=== PATIENT | male | born 1945 | race Caucasian/White ===

== ENCOUNTER 2019-09-01 11:51 | Inpatient (IN) | payer MEDICARE, OTHER ==
[~2019-09-01] VITALS: Ht 175.3 cm; Wt 67.1 kg
--- NOTE | 2019-09-01 12:04 | NUR ---
OSVALDO [place] [employer] [facility] from [facility] for "Fever, more altered/confused than usual", pt to bed 5, placed on monitor, aaox1, vss, nad noted, pending md fortune
[2019-09-01 12:29] LABS: BASOPHILS % (AUTO) 0.3 % (0.0-2.0); EOSINOPHILS % (AUTO) 0.6 % (0.0-6.0); HEMATOCRIT 43 % (39-51); HEMOGLOBIN 14.2 g/dL (13.5-17.5); LYMPHOCYTES # (AUTO) 1.1 /CMM (0.8-4.8); LYMPHOCYTES % (AUTO) 8.4 % (20.0-44.0); MEAN CORPUSCULAR HGB CONC 33 g/dl (31.0-36.0); MEAN CORPUSCULAR VOLUME 95 fL (80-96); MONOCYTES # (AUTO) 1.1 /CMM (0.1-1.30); MONOCYTES % (AUTO) 9.2 % (2.0-12.0); NEUTROPHILS # (AUTO) 10.2 /CMM (1.8-8.9); NEUTROPHILS % (AUTO) 81.5 % (43.0-81.0); PLATELET COUNT (AUTO) 461 /CMM (150-450); RED BLOOD CELL COUNT(AUTO) 4.55 MIL/uL (4.5-6.0); WHITE BLOOD COUNT (AUTO) 12.5 K/uL (4.3-11.0)
[2019-09-01] MEDS ORDERED: ACETAMINOPHEN ES 500 MG TABLET PO ONE (12:30)
[2019-09-01 12:50] LABS: ALANINE AMINOTRANSFERASE 59 U/L (12-78); ALBUMIN 2.1 g/dL (3.4-5.0); ALKALINE PHOSPHATASE 80 U/L (46-116); ASPARTATE AMINOTRANSFERASE 57 U/L (15-37); BILIRUBIN,DIRECT 0.2 mg/dL (0.0-0.2); BILIRUBIN,TOTAL 0.6 mg/dL (0.2-1.0); CALCIUM, SERUM 9.3 mg/dL (8.5-10.1); CARBON DIOXIDE 25 mmol/L (21-32); CHLORIDE 103 mmol/L (98-107); GLUCOSE 99 mg/dL (74-106); POTASSIUM 3.6 mmol/L (3.5-5.1); SODIUM SERUM 142 mmol/L (136-145); TOTAL PROTEIN, SERUM 7.1 g/dL (6.4-8.2); UREA NITROGEN, BLOOD 23 mg/dL (7-18)
[2019-09-01] MEDS ORDERED: ACETAMINOPHEN ES 500 MG TABLET ONE (12:55)
[2019-09-01] MEDS ORDERED: ACETAMINOPHEN 650 MG/SUPP.RECT RC ONE ×2 (12:57→13:30)
[2019-09-01 13:06] LABS: BAND % (MANUAL) 3 % (0.0-5.0); LYMPHOCYTES % (MANUAL) 14 % (16-48); MONOCYTES % (MANUAL) 10 % (0-11.0); NEUTROPHILS % (MANUAL) 73 (42-76)
[2019-09-01 13:52] LABS: APPEARANCE,URINE Clear (CLEAR); BILIRUBIN,URINE Negative (NEGATIVE); BLOOD, URINE Trace-intact Ery/uL (NEGATIVE); COLOR,URINE Yellow (YELLOW); KETONES,URINE Negative (NEGATIVE); LEUKOCYTE ESTERASE ,URINE Negative (NEGATIVE); NITRITE, URINE Negative (NEGATIVE); PH,URINE 5.5 (5.0-8.0); PROTEIN,URINE Trace mg/dl (NEGATIVE); UGLUCOSE Negative (NEGATIVE)
[2019-09-01 13:53] LABS: BACTERIA,URINE Rare /HPF (None Seen); SQUAMOUS EPITHELIAL CELL,UR Few /HPF (None Seen); WBC,URINE NONE SEEN /HPF (0-3)
[2019-09-01] MEDS ORDERED: CEFEPIME 1 GM in IV D5W 50 ML IV ONE (14:00)
--- NOTE | 2019-09-01 14:59 | NUR ---
CALLED [facility] PAGED ANTWAN
[2019-09-01] MEDS ORDERED: TEMA30CA5 PO (15:04)
[2019-09-01] MEDS ORDERED: OLAN15TA3 PO (15:04)
[2019-09-01] MEDS ORDERED: CLON2TAB PO (15:04)
[2019-09-01] MEDS ORDERED: TAMS-12 PO (15:04)
[2019-09-01] MEDS ORDERED: LORA-258 PO (15:04)
[2019-09-01] MEDS ORDERED: RIVA1PAT3 TD (15:04)
[2019-09-01] MEDS ORDERED: PANT40TA2 PO (15:04)
[2019-09-01] MEDS ORDERED: MEGE400O6 PO (15:04)
--- NOTE | 2019-09-01 15:46 | NUR ---
REPORT GIVEN TO MATHIEU MOSS FOR ROXIE; PT TRANSPORTED TO 1ST FLOOR
--- NOTE | 2019-09-01 15:50 | NUR ---
TELE/RN NOTES RECEIVED PATIENT FROM ER ACCOMPANIED BY ER NURSE AND EMT. PATIENT WAS TRANSFERRED IN BED. NO PAIN OR ACUTE DISTRESS AT THIS TIME. RESPIRATION EVEN AND UNLABORED. SKIN IS DRY WARM TO TOUCH. NOTED WITH IV ACCESS ON LFA #18G. INTACT AND PATENT. FLUSHING WELL. NO S/S OF INFECTION OR INFILTRATION. INITIAL SKIN ASSESSMENT DONE. PHOTOS WAS TAKEN AND WAS PLACED IN THE CHART. ALL NEEDS ANTICIPATED. CALL LIGHT WITHIN REACHED. BED LOCKED AND IN LOWEST POSITION. SAFETY MAINTAINED. WILL CONTINUE TO MONITOR CLOSELY.
[2019-09-01] MEDS ORDERED: MAG HYDROX/AL HYDROX/SIMETH 30 ML UDC PO PRN (16:00)
[2019-09-01] MEDS ORDERED: ACETAMINOPHEN 325 MG TABLET PO PRN (16:00)
[2019-09-01] MEDS ORDERED: ZOLPIDEM TARTRATE 5 MG TABLET PO PRN (16:00)
[2019-09-01] MEDS ORDERED: Z GUARD REMEDY 2 OZ OINT TP PRN (16:00)
[2019-09-01] MEDS ORDERED: ONDANSETRON HCL/PF 4 MG/2 ML VIAL IVP PRN (16:00)
[2019-09-01] MEDS ORDERED: MAGNESIUM HYDROXIDE 30 ML UDC PO PRN (16:00)
[2019-09-01] MEDS ORDERED: HYDROCODONE/APAP 5/325MG 1 EACH TABLET PO PRN (16:00)
[2019-09-01] MEDS ORDERED: FEE PK DOSING 1 MIN EA MC ONE (16:07)
--- NOTE | 2019-09-01 16:20 | NUR ---
TELE/RN NOTES COVID SWAB DONE AND WAS GIVEN TO LAB FOR PROCESSING. PATIENT CONTINUES TO REMAIN IN STABLE CONDITION. WILL CONTINUE TO MONITOR CLOSELY.
[2019-09-01 16:30] VITALS: BP 126/68
[2019-09-01 17:29] LABS: C-REACTIVE PROTEIN 13.6 mg/dL (0.0-0.9)
[2019-09-01] MEDS: VANCOMYCIN 1 GM in IV D5W 250 ML IV SCH (17:59)
[2019-09-01] MEDS: IV NS 0.9% 1,000 ML IV SCH (18:00)
[2019-09-01] MEDS: MEGESTROL ACETATE SUSP 400 MG/10 ML UDC PO SCH (18:00)
--- NOTE | 2019-09-01 19:01 | NUR ---
TELE/RN NOTES INCIDENT REPORT DONE WITH UNIQUE ID: [id number].
--- NOTE | 2019-09-01 19:05 | NUR ---
BEHAVIORIST OPENING NOTES RECEIVED PT AWAKE ON BED ON O2 2L VIA NC, A/O X1 WITH IV ON LFA #18 HOOKED TO NS 1L @75ML/HR INFUSING WELL, NO SIGNS OF INFILTRATION, ON TELE MONITOR ST 100'S, SAFETY MEASURE MAINTAINED SIDE RAILS UP X3 BED ON LOWEST POSITION AND LOCKED CALL LIGHT WITHIN REACH DROPLET ISOLATION MAINTAINED PENDING [facility], WILL CONT. TO MONITOR
--- NOTE | 2019-09-01 19:10 | NUR ---
TELE/RN CLOSING NOTES PATIENT CONTINUES TO REMAIN IN STABLE CONDITION THROUGHOUT THE SHIFT. PROVIDED COMFORT AND SAFETY. PATIENT ABLE TO TOLERATE MEDS WELL. NO PAIN OR ACUTE DISTRESS AT THIS TIME. RESPIRATION EVEN AND UNLABORED. SKIN IS DRY WARM TO TOUCH. DROPLET PRECAUTION MAINTAINED. ALL NEEDS ANTICIPATED. CALL LIGHT WITHIN REACHED. BED LOCKED AND IN LOWEST POSITION. SAFETY MAINTAINED. ENDORSED TO PM NURSE FOR ROXIE.
[2019-09-01 20:00] VITALS: BP 130/87
[2019-09-01] MEDS ORDERED: CEFEPIME 2 GM in IV NS 0.9% 50 ML IV SCH (21:00)
[2019-09-01] MEDS: CEFEPIME 2 GM in IV D5W 100 ML IV SCH (21:12)
[2019-09-01] MEDS: TAMSULOSIN 0.4 MG CAP.SR.24H PO SCH (21:13)
[2019-09-01] MEDS: OLANZAPINE 10 MG TABLET PO SCH (21:13)
[2019-09-01] MEDS ORDERED: [UNRECOGNIZED DRUG - REMARK] PO SCH (23:00)
[2019-09-01] MEDS ORDERED: HYDROXYCHLOROQUINE 200 MG TABLET ONE (23:08)
[2019-09-01] MEDS ORDERED: AZITHROMYCIN 500 MG VIAL ONE (23:32)
[2019-09-01] MEDS: AZITHROMYCIN 500 MG in IV D5W 250 ML IV SCH (23:42)
--- NOTE | 2019-09-01 23:45 | NUR ---
CASINO SURVEILLANCE OFFICER NOTES PHARMACY CALLED REGARDING THE HYDROXYCHLOROQUINE ORDER AND RECOMMENDATION, DR VEGA MADE AWARE AND AGREED TO HYDROXYCHLOROQUINE 400MG BID X 1 DAY AND HYDROXYCHLOROQUINE 200MG BID X 4 DAYS NOTED AND CARRIED OUT
[2019-09-02] VITALS (7 sets, daily range): BP systolic 101–143; BP diastolic 60–113
[2019-09-02] MEDS ORDERED: [UNRECOGNIZED DRUG - REMARK] PO SCH
[2019-09-02] MEDS: CEFEPIME 2 GM in IV D5W 100 ML IV SCH ×3 (04:25→21:27)
[2019-09-02] MEDS: VANCOMYCIN 1 GM in IV D5W 250 ML IV SCH ×2 (05:04→16:27)
[2019-09-02] MEDS ORDERED: HYDROXYCHLOROQUINE 200 MG TABLET PO SCH (06:11)
[2019-09-02 06:24] LABS: BASOPHILS % (AUTO) 0.3 % (0.0-2.0); EOSINOPHILS % (AUTO) 0.6 % (0.0-6.0); HEMATOCRIT 40 % (39-51); HEMOGLOBIN 13.3 g/dL (13.5-17.5); LYMPHOCYTES # (AUTO) 0.9 /CMM (0.8-4.8); LYMPHOCYTES % (AUTO) 6.3 % (20.0-44.0); MEAN CORPUSCULAR HGB CONC 33 g/dl (31.0-36.0); MEAN CORPUSCULAR VOLUME 95 fL (80-96); MONOCYTES # (AUTO) 1.2 /CMM (0.1-1.30); MONOCYTES % (AUTO) 8.7 % (2.0-12.0); NEUTROPHILS # (AUTO) 11.7 /CMM (1.8-8.9); NEUTROPHILS % (AUTO) 84.1 % (43.0-81.0); PLATELET COUNT (AUTO) 419 /CMM (150-450); RED BLOOD CELL COUNT(AUTO) 4.24 MIL/uL (4.5-6.0); WHITE BLOOD COUNT (AUTO) 13.9 K/uL (4.3-11.0)
[2019-09-02 06:39] LABS: CHOLESTEROL 114 mg/dL (<200); CREATINE KINASE, TOTAL 621 U/L (39-308); FERRITIN 2024 ng/mL (8-388); HDL CHOLESTEROL 15 mg/dL (40-60); LDL 83 mg/dL (0-99); TRIGLYCERIDES 113 mg/dL (30-150)
[2019-09-02] MEDS: IV NS 0.9% 1,000 ML IV SCH ×2 (06:48→22:36)
--- NOTE | 2019-09-02 07:23 | NUR ---
MEDICAL VIDEOGRAPHER CLOSING NOTES PT ON GOOD CONDITION NO SIGN AND SYMPTOMS OF DISTRESS, NO PAIN NOTED, NO SIGNIFICANT CHANGES ON CONDITION NOTED, ALL NEEDS ATTENDED STILL ON TELE WITH READING ST 100'S, SAFETY MEASURE MAINTAINED BED ON LOWEST POSITION AND LOCKED SIDE RAILS UP X3 CALL LIGHT WITHIN REACHED DROPLET ISOLATION MAINTAINED LABS PENDING WILL ENDORSE TO MUSIC VIDEO PRODUCER NURSE
--- NOTE | 2019-09-02 07:30 | NUR ---
RN opening note: Received patient in bed. Awake and confused. On cont. 02 via NC @2lpm being tolerated well. NO SOB, no respiratory distress noted at the moment. Tele monitoring showing sinus tachycardia in the 110-120s. No pain noted on patient. On isolation precautions to R/O Covid. Precautions strictly observed. Mariano catheter draining jer urine. Iv site clean, dry. patent and in place. call light in reach. side rails upx3. bed locked, low and at semi-borden's position. safety ensured and observed. will continue to monitor.
[2019-09-02 08:03] LABS: B-TYPE NATRIURETIC PEPTIDE 110 PG/ML (0-125); CALCIUM, SERUM 8.6 mg/dL (8.5-10.1); CARBON DIOXIDE 21 mmol/L (21-32); CHLORIDE 103 mmol/L (98-107); CREATININE 0.9 mg/dL (0.6-1.3); GLUCOSE 153 mg/dL (74-106); MAGNESIUM 2.1 mg/dL (1.8-2.4); PHOSPHORUS 3.6 mg/dL (2.5-4.9); POTASSIUM 3.9 mmol/L (3.5-5.1); SODIUM SERUM 138 mmol/L (136-145); UREA NITROGEN, BLOOD 22 mg/dL (7-18)
[2019-09-02 08:24] LABS: BAND % (MANUAL) 3 % (0.0-5.0); EOSINOPHILS % (MANUAL) 1 % (0-4); LYMPHOCYTES % (MANUAL) 6 % (16-48); MONOCYTES % (MANUAL) 8 % (0-11.0); MYELOCYTES % 1 % (0-0); NEUTROPHILS % (MANUAL) 81 (42-76)
[2019-09-02] MEDS: MEGESTROL ACETATE SUSP 400 MG/10 ML UDC PO SCH ×2 (08:48→16:27)
[2019-09-02] MEDS: PANTOPRAZOLE 40 MG TABLET.DR PO SCH (08:48)
[2019-09-02] MEDS: RIVASTIGMINE TARTRATE 4.6 MG PATCH.TD24 TD SCH (08:51)
[2019-09-02] MEDS: HYDROXYCHLOROQUINE 200 MG TABLET PO SCH (16:27)
--- NOTE | 2019-09-02 18:27 | NUR ---
RN Closing note: Patient in bed. awake and confused and at times oriented x1. . On cont. 02 via NC @2lpm being tolerated well. NO SOB, no respiratory distress noted at the moment. Tele monitoring showing sinus tachycardia in the 100-110s. No pain noted on patient. On isolation precautions to R/O Covid. Precautions strictly observed. Still awaiting results and Dr. Holland is aware. Mariano catheter draining yellow and jer urine. IV site clean, dry. patent and in place. Call light in reach. side rails upx3. bed locked, low and at semi-borden's position. safety ensured and observed. will endorse to oncoming shift for ROXIE.
--- NOTE | 2019-09-02 19:20 | NUR ---
RN OPENING NOTE PATIENT IN BED SLEEPING IN SEMI HUNT'S POSITION BUT EASILY AROUSABLE. ON 2L OF O2 VIA NC AND TOLERATING WELL. NO RESPIRATORY DISTRESS NOTED. RESPIRATIONS EVEN AND UNLABORED. NO INDICATIONS OF DISTRESS OR DISCOMFORT. TELE MONITORING SHOWS SINUS TACHYCARDIA. ON ISOLATION PRECAUTIONS FOR R/O COVID. RESULTS PENDING. KELLEY CATHETER PATENT AND IN PLACE DRAINING CLEAR YELLOW URINE VIA GRAVITY. CALL LIGHT WITHIN REACH, SAFETY MEASURES IN PLACE, WILL MONITOR
[2019-09-02] MEDS: OLANZAPINE 10 MG TABLET PO SCH (21:33)
[2019-09-02] MEDS: TAMSULOSIN 0.4 MG CAP.SR.24H PO SCH (21:33)
[2019-09-02] MEDS: AZITHROMYCIN 500 MG in IV D5W 250 ML IV SCH (22:35)
[2019-09-03] VITALS: BP 97/62
[2019-09-03 04:00] VITALS: BP 100/64
[2019-09-03 04:13] LABS: BASOPHILS % (AUTO) 0.3 % (0.0-2.0); EOSINOPHILS % (AUTO) 0.9 % (0.0-6.0); HEMATOCRIT 39 % (39-51); HEMOGLOBIN 13.1 g/dL (13.5-17.5); LYMPHOCYTES % (AUTO) 7.3 % (20.0-44.0); MEAN CORPUSCULAR HGB CONC 33 g/dl (31.0-36.0); MEAN CORPUSCULAR VOLUME 95 fL (80-96); MONOCYTES # (AUTO) 1.6 /CMM (0.1-1.30); MONOCYTES % (AUTO) 11.6 % (2.0-12.0); NEUTROPHILS # (AUTO) 10.9 /CMM (1.8-8.9); NEUTROPHILS % (AUTO) 79.9 % (43.0-81.0); PLATELET COUNT (AUTO) 369 /CMM (150-450); RED BLOOD CELL COUNT(AUTO) 4.14 MIL/uL (4.5-6.0); WHITE BLOOD COUNT (AUTO) 13.6 K/uL (4.3-11.0)
[2019-09-03 04:24] LABS: CALCIUM, SERUM 8.3 mg/dL (8.5-10.1); CARBON DIOXIDE 25 mmol/L (21-32); CHLORIDE 104 mmol/L (98-107); CREATININE 0.8 mg/dL (0.6-1.3); GLUCOSE 92 mg/dL (74-106); POTASSIUM 3.8 mmol/L (3.5-5.1); SODIUM SERUM 140 mmol/L (136-145); UREA NITROGEN, BLOOD 15 mg/dL (7-18)
[2019-09-03] MEDS: VANCOMYCIN 1 GM in IV D5W 250 ML IV SCH ×2 (04:34→17:21)
[2019-09-03] MEDS: CEFEPIME 2 GM in IV D5W 100 ML IV SCH ×3 (04:34→21:07)
--- NOTE | 2019-09-03 06:36 | NUR ---
RN CLOSING NOTE PATIENT SLEEPING IN BED IN SEMI HUNT'S POSITION. EASILY AROUSABLE WITH VERBAL AND TACTILE STIMULI. RESPIRATIONS EVEN AND UNLABORED. ON 3L OF O2 VIA NC AND TOLERATING WELL. NO SIGNS OF RESPIRATORY OR CARDIAC DISTRESS. NO INDICATIONS OF PAIN OR DISCOMFORT. TELE MONITOR SHOWS SINUS TACHYCARDIA (96). ON ISOLATION PRECAUTIONS FOR R/O COVID. RESULTS STILL PENDING. KELLEY CATHETER PATENT AND IN PLACE DRAINING CLEAR YELLOW URINE VIA GRAVITY, LEFT FOREARM IV G 18 PATENT AND RUNNING IVF NS @75ML/HR ORDERED. ALSO WITH RIGHT ANTECUBITAL G 22 PATENT AND INTACT. BOTH IV SITES WITHOUT SIGNS OF INFILTRATION AND INFECTION. CALL LIGHT WITHIN REACH, BED LOCKED AND IN LOW POSITION, SAFETY MEASURES IN PLACE, WILL ENDORSE TO MORNING RN FOR CONTINUATION OF CARE.
--- NOTE | 2019-09-03 07:30 | NUR ---
TELEPHONE SERVICE REPRESENTATIVE OPENING NOTE Received patient asleep in bed appears calm and relaxed. On NC 3L tolerating well. O2 sat of 99%. Patient is AO x1. Unable to speak. No signs of distress. Patient is on Mariano Catheter draining clear yellow urine. No signs of infection. No signs of pain or discomfort. Patient is contracted. Pillows in place repositioned done. Patient has LFA and RAC Peripheral IV line. 0.9% NaCl running at 75cc/hr on LFA. Patient is pending for Covid-19 test results. Will continue to monitor.
[2019-09-03] MEDS: PANTOPRAZOLE 40 MG TABLET.DR PO SCH (07:34)
[2019-09-03 08:00] VITALS: BP 97/50
--- NOTE | 2019-09-03 08:17 | NUR ---
TIMBER TRIMMER NOTE Called daughter Susan Stinson regarding patient's POLST. Left a message to give us a call back.
[2019-09-03] MEDS: IV NS 0.9% 1,000 ML IV SCH (08:24)
[2019-09-03] MEDS: HYDROXYCHLOROQUINE 200 MG TABLET PO SCH ×2 (08:24→17:21)
[2019-09-03] MEDS: MEGESTROL ACETATE SUSP 400 MG/10 ML UDC PO SCH ×2 (08:24→17:21)
[2019-09-03] MEDS: RIVASTIGMINE TARTRATE 4.6 MG PATCH.TD24 TD SCH (08:24)
--- NOTE | 2019-09-03 09:01 | NUR ---
WOUND CARE CONSULT: PT PRESENTS WITH MULTIPLE WOUNDS PRESENT ON ADMISSION INCLUDING LEFT BUTTOCK STAGE 3 ULCER AND BILATERAL FOOT INTACT DEEP TISSUE INJURIES WITH RAISED AREAS. PT NOTED TO HAVE CONTACTED LOWER EXTREMITIES. RECOMMENDATIONS MADE FOR SKIN PROTECTION. DISCUSSED WITH NURSING STAFF. RECOMMEND DPM AND SURGICAL CONSULTS. DR HERRERA AND DR RAY NOTIFIED OF CONSULT REQUESTS. WILL SEE PRN. BLACKMON IN AGREEMENT WITH PLAN OF CARE. Addendum: 09/03/19 at 0903 by DANISHA KU Amended: Links added. Addendum: 09/03/19 at 0959 by DANISHA HYLTONU CURRENT JONES SCORE IS 11. FIRST STEP LOW AIRLOSS MATTRESS ORDERED.
--- NOTE | 2019-09-03 10:00 | NUR ---
CARBONATION EQUIPMENT TENDER NOTE Daughter Susan called back regarding patient. Advance Directive that she signed on 04/2019 was discussed with her. Asked her if she still wants to proceed with the same DNR. She said yes. Asked her if we find the patient not breathing does she want us to put a tube on his mouth to help him breath. She said no. DNR/DNI status update was witnessed by Charge Nurse Katheryn Holland to provide information. Awaiting call back.
--- NOTE | 2019-09-03 10:38 | NUR ---
DIETARY SERVICES DIRECTOR NOTE Received call back from Dr. Holland to keep the same POLST DNR/DNI as daughter have confirmed. Entered the order in the system.
[2019-09-03] MEDS: THERAHONEY GEL 1.5 OZ TUBE TP SCH (11:42)
[2019-09-03 12:00] VITALS: BP_SYST 95; BP_DIAS 50; BP_DIAS 53
--- NOTE | 2019-09-03 14:25 | NUR ---
INDUSTRIAL TECHNICIAN NOTE Called Susan Stinson, patient's daughter, to obtain consent for the wound debridement on L. Buttock. Daughter gave consent. Placed consent in chart.
[2019-09-03 16:00] VITALS: BP 100/64
--- NOTE | 2019-09-03 18:38 | NUR ---
ICU REGISTERED NURSE CLOSING NOTE Patient is in bed with eyes closed. HOB elevated. On NC 3L tolerating well. No signs of distress. O2 sat is 95%. No co pain or discomfort. On cam catheter draining clear yellow urine. Patient tolerated pureed diet nectar thick liquids and had 25%. No coughing noted. Patient is afebrile. Nasal swab done to patient and lab picked up specimen. Covid test is still pending. Will follow up and endorse to assistant shift supervisor nurse for caty.
--- NOTE | 2019-09-03 19:33 | NUR ---
VEGETABLE PICKER CLOSING NOTE ENDORSED TO LOSS PREVENTION SUPERVISOR NURSE FOR ROXIE.
--- NOTE | 2019-09-03 19:35 | NUR ---
RN OPEN NOTES RECEIVED PATIENT RESTING IN BED, A/OX1 RESPONDS "YEA" WHEN SAYING HIS NAME. NO SIGNS OF DISTRESS OR DISCOMFORT. BREATHING EVEN AND UNLABORED. ON 3LPM 02VIA NC. ON TELE MONITOR WITH ST 110 NOTED. IV ACCESS IN RAC, AND LFA WITH NS INFUSING, PATENT AND INTACT, NO SIGNS OF REDNESS OR INFILTRATION. HAS F/C INTACT DRAINING PRACHI RED FLUID. BED IN LOW LOCKED POSITION WITH SIDE RAILS X2. CALL LIGHT WITHIN REACH. WILL CONTINUE TO MONITOR.
[2019-09-03 20:00] VITALS: BP 105/70
[2019-09-03] MEDS: OLANZAPINE 10 MG TABLET PO SCH (21:07)
[2019-09-03] MEDS: TAMSULOSIN 0.4 MG CAP.SR.24H PO SCH (21:07)
[2019-09-03] MEDS: AZITHROMYCIN 500 MG in IV D5W 250 ML IV SCH (23:16)
[2019-09-04] VITALS: BP 114/72
[2019-09-04 04:00] VITALS: BP 109/53
[2019-09-04] MEDS: VANCOMYCIN 1 GM in IV D5W 250 ML IV SCH ×2 (05:20→16:07)
[2019-09-04] MEDS: CEFEPIME 2 GM in IV D5W 100 ML IV SCH ×3 (05:20→21:08)
[2019-09-04 06:36] LABS: BASOPHILS % (AUTO) 0.3 % (0.0-2.0); EOSINOPHILS % (AUTO) 0.6 % (0.0-6.0); HEMATOCRIT 38 % (39-51); HEMOGLOBIN 12.5 g/dL (13.5-17.5); LYMPHOCYTES # (AUTO) 1.2 /CMM (0.8-4.8); LYMPHOCYTES % (AUTO) 10.1 % (20.0-44.0); MEAN CORPUSCULAR HGB CONC 33 g/dl (31.0-36.0); MEAN CORPUSCULAR VOLUME 95 fL (80-96); MONOCYTES # (AUTO) 1.3 /CMM (0.1-1.30); MONOCYTES % (AUTO) 11.1 % (2.0-12.0); NEUTROPHILS # (AUTO) 9.3 /CMM (1.8-8.9); NEUTROPHILS % (AUTO) 77.9 % (43.0-81.0); PLATELET COUNT (AUTO) 376 /CMM (150-450); WHITE BLOOD COUNT (AUTO) 11.9 K/uL (4.3-11.0)
[2019-09-04 06:40] LABS: CALCIUM, SERUM 8.3 mg/dL (8.5-10.1); CREATININE 0.7 mg/dL (0.6-1.3); POTASSIUM 3.7 mmol/L (3.5-5.1)
--- NOTE | 2019-09-04 06:58 | NUR ---
RN CLOSING NOTES PATIENT RESTING IN BED, EASILY AROUSABLE. A/OX1. NO SIGNS OF DISTRESS OR DISCOMFORT. BREATHING EVEN AND UNLABORED. ON 3LPM 02VIA NC. ON TELE MONITOR WITH ST 105 NOTED. IV ACCESS IN RAC, AND LFA WITH NS INFUSING, PATENT AND INTACT, NO SIGNS OF REDNESS OR INFILTRATION. HAS F/C INTACT DRAINING PRACHI RED FLUID. ALL NEEDS MET. NO SIGNIFICANT CHANGES THROUGH THE NIGHT. PATIENT REPOSITIONED Q2H AND PRN. BED IN LOW LOCKED POSITION WITH SIDE RAILS X2. CALL LIGHT WITHIN REACH. WILL ENDORSE TO AM SHIFT FOR ROXIE.
--- NOTE | 2019-09-04 07:39 | NUR ---
RN OPENING NOTES RECEIVED PATIENT RESTING IN BED COMFORTABLY, DOES NOT SHOW ANY S.SX OF DISTRESS AT THIS TIME. HE IS AOX1, NON-VERBAL, AND ON BED REST. TELE MONITOR SHOWING SR ST WITH HR IN THE 110'S. SKIN IS NOT INTACT, WILL ADDRESS PER WOUND CARE PLAN, HE IS ON 3L OF OXYGEN VIA NC, TOLERATING WELL. RAC 22 G SL AND LFA 18 G ARE PATENT AND INTACT, INFUSING NS AT 75 ML.HR. SAFETY MEASURES HAVE BEEN IMPLEMENTED, CALL LIGHT IS WITHIN REACH, BED IS IN LOWEST AND LOCKED POSITION, SIDE RAILS UP X2, WILL CONTINUE TO MONITOR FOR ANY CHANGES.
[2019-09-04 08:00] VITALS: BP_SYST 89; BP_SYST 92; BP_DIAS 54
[2019-09-04] MEDS: HYDROXYCHLOROQUINE 200 MG TABLET PO SCH ×2 (08:09→16:06)
[2019-09-04] MEDS: MEGESTROL ACETATE SUSP 400 MG/10 ML UDC PO SCH ×2 (08:09→16:06)
[2019-09-04] MEDS: PANTOPRAZOLE 40 MG TABLET.DR PO SCH (08:10)
[2019-09-04] MEDS: RIVASTIGMINE TARTRATE 4.6 MG PATCH.TD24 TD SCH (08:11)
[2019-09-04] MEDS: THERAHONEY GEL 1.5 OZ TUBE TP SCH (08:19)
[2019-09-04 12:00] VITALS: BP 98/63
[2019-09-04 16:00] VITALS: BP 101/70
[2019-09-04] MEDS: IV NS 0.9% 1,000 ML IV PRN (16:06)
--- NOTE | 2019-09-04 18:53 | NUR ---
RN CLOSING NOTES PATIENT IS RESTING IN BED COMFORTABLY AT THIS TIME, NO S.SX OF DISTRESS PRESENT. PT IS ON 3L OF OXYGEN VIA NC, NO S/SX OF SOB. DROPLET AND CONTACT ISO HAVE BEEN IMPLEMENTED AND ENFORCED FOR RULE OUT CO-VID. PT NEEDS HAVE BEEN MET, VITAL SIGNS ARE STABLE, NO ACUTE CHANGES OCCURRED THROUGHOUT THE SHIFT. SAFETY MEASURES HAVE BEEN IMPLEMENTED, CALL LIGHT IS WITHIN REACH, BED IS IN LOWEST AND LOCKED POSITION, SIDE RAILS UP X2, WILL ENDORSE TO NIGHTSHIFT RN FOR ROXIE.
--- NOTE | 2019-09-04 19:10 | NUR ---
RN OPENING NOTES RECEIVED PATIENT SLEEPING IN BED, BUT EASY TO AROUSE VIA TOUCH. OPENS EYES, HOWEVER DOES NOT ANSWER TO QUESTIONS. ON TELE MONITOR SR-ST WITH HR 90'S-100'S. ON OXYGEN 3L VIA NC, TOLERATING WELL, NO SOB OR RESPIRATORY DISTRESS NOTED. IV SITE RIGHT AC 22G FLUSHING AND INTACT, IVF RUNNING AT 75ML/HR, TOLERATING WELL, NO INFILTRATION NOTED. KELLEY CATH INTACT AND DRAINING WELL. SAFETY MEASURES AND ISOLATION PRECAUTIONS IN PLACE; CALL LIGHT WITHIN REACH, BED LOCKED AND IN LOW POSITION, SIDE RAILS UP X2, HOB ELEVATED, BED ALARM ON. WILL CONTINUE TO PATIENT MONITOR CLOSELY.
--- NOTE | 2019-09-04 19:10 | NUR ---
PT HAS BEEN ENDORSED FOR ROXIE
[2019-09-04 20:00] VITALS: BP 107/50
[2019-09-04] MEDS: TAMSULOSIN 0.4 MG CAP.SR.24H PO SCH (21:08)
[2019-09-04] MEDS: OLANZAPINE 10 MG TABLET PO SCH (21:08)
[2019-09-04] MEDS: AZITHROMYCIN 500 MG in IV D5W 250 ML IV SCH (23:00)
[2019-09-05] VITALS: BP 91/60
--- NOTE | 2019-09-05 | NUR ---
RN NOTES PATIENT ROUNDING DONE, NO ACUTE DISTRESS NOTED. WILL CONT TO MONITOR CLOSELY.
[2019-09-05 04:00] VITALS: BP 110/63
[2019-09-05] MEDS: CEFEPIME 2 GM in IV D5W 100 ML IV SCH ×3 (04:15→21:33)
[2019-09-05] MEDS: IV NS 0.9% 1,000 ML IV PRN ×2 (05:24→21:34)
[2019-09-05] MEDS: VANCOMYCIN 1 GM in IV D5W 250 ML IV SCH ×2 (05:24→16:09)
[2019-09-05 06:09] LABS: BASOPHILS % (AUTO) 0.2 % (0.0-2.0); EOSINOPHILS % (AUTO) 1.8 % (0.0-6.0); HEMATOCRIT 34 % (39-51); HEMOGLOBIN 11.3 g/dL (13.5-17.5); LYMPHOCYTES % (AUTO) 7.9 % (20.0-44.0); MEAN CORPUSCULAR HGB CONC 33 g/dl (31.0-36.0); MEAN CORPUSCULAR VOLUME 94 fL (80-96); MONOCYTES # (AUTO) 1.1 /CMM (0.1-1.30); MONOCYTES % (AUTO) 8.7 % (2.0-12.0); NEUTROPHILS # (AUTO) 10.5 /CMM (1.8-8.9); NEUTROPHILS % (AUTO) 81.4 % (43.0-81.0); PLATELET COUNT (AUTO) 371 /CMM (150-450); RED BLOOD CELL COUNT(AUTO) 3.65 MIL/uL (4.5-6.0); WHITE BLOOD COUNT (AUTO) 12.8 K/uL (4.3-11.0)
[2019-09-05 06:14] LABS: ALBUMIN 1.6 g/dL (3.4-5.0); BILIRUBIN,TOTAL 0.5 mg/dL (0.2-1.0); CALCIUM, SERUM 8.1 mg/dL (8.5-10.1); CREATININE 0.8 mg/dL (0.6-1.3); MAGNESIUM 1.9 mg/dL (1.8-2.4); PHOSPHORUS 2.8 mg/dL (2.5-4.9); POTASSIUM 3.2 mmol/L (3.5-5.1); TOTAL PROTEIN, SERUM 5.5 g/dL (6.4-8.2)
--- NOTE | 2019-09-05 06:40 | NUR ---
RN CLOSING NOTES PATIENT IN BED, NO ACUTE CHANGES THROUGHOUT SHIFT. ON TELE MONITOR SR-ST WITH HR 90'S-100'S. ON OXYGEN 3L VIA NC, TOLERATING WELL, NO SOB OR RESPIRATORY DISTRESS NOTED. IV SITES RIGHT FA 22G AND LEFT WRIST 22G BOTH FLUSHING AND INTACT, IVF RUNNING AT 75ML/HR, TOLERATING WELL, NO INFILTRATION NOTED. KELLEY CATH INTACT AND DRAINING WELL. ALL MD ORDERS ATTENDED, ALL NEEDS ANTICIPATED AND MET. SAFETY MEASURES AND ISOLATION PRECAUTIONS MAINTAINED. COVID19 SWAB STILL PENDING. WILL CONTINUE TO PATIENT MONITOR CLOSELY. WILL ENDORSE TO AM RN FOR ROXIE.
--- NOTE | 2019-09-05 07:30 | NUR ---
RN OPENING NOTES RECEIVED PATIENT RESTING IN BED COMFORTABLY, SHOWS NO S.SX OF DISTRESS OR SOB. HE IS AOX1, NON-VERBAL, AND BEDBOUND. HE IS ON 3L OF OXYGEN VIA NC, TOLERATING WELL, NO SOB. TELE MONITOR SHOWING SR. KELLEY CATH IS PATENT AND INTACT, DRAINING PRACHI COLORED URINE BY GRAVITY. SKIN IS NOT INTACT, MULTIPLE ISSUES PRESENT, WILL ADDRESS PER WOUND PLAN. L WRIST 22G, RFA 22G IS PATENT AND INTACT, INFUSING NS AT 75 ML.HR. SAFETY MEASURES HAVE BEEN IMPLEMENTED, CALL LIGHT IS WITHIN REACH, BED IS IN LOWEST AND LOCKED POSITION, SIDE RAILS UP X2, WILL CONTINUE TO MONITOR FOR ANY CHANGES.
--- NOTE | 2019-09-05 07:36 | NUR ---
RN OPENING NOTES RECEIVED PATIENT RESTING IN BED COMFORTABLY AND AWAKE. SHE IS AOX2, VERBAL, AND ON BED REST. SHE IS ON RA, TOLERATING WELL, PER REPORT PT KEEPS REMOVING NASAL CANULA. TELE MONITOR SHOWING SR. ALLIE VAIL IS INTACT. SKIN ISSUES ARE PRESENT, WILL ADDRESS PER WOUND PLAN. RAC 22G IS PATENT AND INTACT. CHEST RISES AND FALLS EVENLY WITH EACH BREATH. SAFETY MEASURES HAVE BEEN IMPLEMENTED, CALL LIGHT IS WITHIN REACH, BED IS IN LOWEST AND LOCKED POSITION, SIDE RAILS UP X2, WILL CONTINUE TO MONITOR FOR ANY CHANGES. Addendum: 09/05/19 at 1142 by VIN ROWAN RN documented for wrong patient, disregard note.
[2019-09-05 08:00] VITALS: BP 94/36
[2019-09-05] MEDS: MEGESTROL ACETATE SUSP 400 MG/10 ML UDC PO SCH ×2 (08:18→16:09)
[2019-09-05] MEDS: HYDROXYCHLOROQUINE 200 MG TABLET PO SCH (08:18)
[2019-09-05] MEDS: PANTOPRAZOLE 40 MG TABLET.DR PO SCH (08:18)
[2019-09-05] MEDS: THERAHONEY GEL 1.5 OZ TUBE TP SCH (08:22)
[2019-09-05] MEDS: RIVASTIGMINE TARTRATE 4.6 MG PATCH.TD24 TD SCH (08:49)
[2019-09-05] MEDS ORDERED: POTASSIUM CHLORIDE 20 MEQ POWDER PACKET NG SCH (09:00)
--- NOTE | 2019-09-05 10:30 | NUR ---
RN NOTES REPEAT COVID-19 TEST HAS BEEN SENT TO THE LAB. NASOPHARNYX SWAB
[2019-09-05] MEDS: ENSURE ENLIVE 237 ML LIQUID (VANILLA) PO SCH ×2 (12:09→17:47)
[2019-09-05 16:00] VITALS: BP 98/64
--- NOTE | 2019-09-05 19:27 | NUR ---
RN CLOSING NOTES PATIENT IS RESTING IN BED COMFORTABLY. HE IS ON 3L OF OXYGEN, TOLERATING WELL. REPEAT COVID SWAB HAS BEEN SENT, PT IS STILL ON DROPLET AND CONTACT PRECAUTIONS. NO ACUTE CHANGES OCCURRED THROUGHOUT THE SHIFT, VITAL SIGNS ARE STABLE, PT NEEDS HAVE BEEN MET, SAFETY MEASURES HAVE BEEN IMPLEMENTED, CALL LIGHT IS WITHIN REACH, BED IS IN LOWEST AND LOCKED POSITION, SIDE RAILS UP X2, PT HAS BEEN ENDORSED TO NIGHTSHIFT RN FOR ROXIE.
--- NOTE | 2019-09-05 19:30 | NUR ---
MS RN NOTE RECEIVED PATIENT IN BED RESTING,BREATHING NORMAL NO SOB NOTED. RESPIRATION EVEN NON LABORED. SKIN WARM AND DRY TO TOUCH. ON 3L OXYGEN VIA NC TOLERATING WELL. LT WRIST 22G NS RUNNING AT 75ML/HR, RFA 22G IV INTACT PATENT. ON ISOLATION. F/C INTACT DARNING PRACHI COLOR URINE WITH GRAVITY. ABD SOFT NON DISTENDED. SAFETY MEASURES IN PLACE, BED IN LOW AND LOCKED POSITION, CALL LIGHT WITHIN REACH. WILL CONT TO MONITOR.
[2019-09-05 20:00] VITALS: BP 95/75
[2019-09-05] MEDS: TAMSULOSIN 0.4 MG CAP.SR.24H PO SCH (21:33)
[2019-09-05] MEDS: OLANZAPINE 10 MG TABLET PO SCH (21:33)
[2019-09-06 04:00] VITALS: BP 106/74
[2019-09-06 04:18] LABS: CALCIUM, SERUM 8.1 mg/dL (8.5-10.1); CARBON DIOXIDE 26 mmol/L (21-32); CHLORIDE 102 mmol/L (98-107); CREATININE 0.8 mg/dL (0.6-1.3); GLUCOSE 95 mg/dL (74-106); POTASSIUM 2.9 mmol/L (3.5-5.1); SODIUM SERUM 138 mmol/L (136-145); UREA NITROGEN, BLOOD 10 mg/dL (7-18)
--- NOTE | 2019-09-06 05:00 | NUR ---
MS RN NOTE BED BATH RENDERED PATIENT TOLERATED WELL.
[2019-09-06] MEDS: CEFEPIME 2 GM in IV D5W 100 ML IV SCH ×3 (05:18→21:36)
[2019-09-06] MEDS: VANCOMYCIN 1 GM in IV D5W 250 ML IV SCH ×2 (06:05→17:35)
--- NOTE | 2019-09-06 06:27 | NUR ---
MS RN NOTES PATIENT RESTED WELL THROUGH OUT THE SHIFT. NO S/S OF DISTRESS NOTED. VITAL SIGNS REMAINED WNL. DUE MEDICATIONS WERE GIVEN TOLERATED WELL. TURNING REPOSITIONING ORDERED Q2 HOURS. ALL SAFETY MEASURES IN PLACE. ALL NEEDS ARE ATTENDED. WILL ENDORSE PATIENT TO DAY SHIFT NURSE FOR ROXIE.
--- NOTE | 2019-09-06 07:39 | NUR ---
MS/RN OPENING NOTES RECEIVED PATIENT SLEEPING, LYING COMFORTABLY ON THE BED. PATIENT IS ALERT AND ORIENTED X1, APHASIC. NO APPARENT DISTRESS NOTED. NO COMPLAINED OF PAIN NOTED. NASAL CANNULA IN PLACED AT 3L/MIN. IVF OF NS 1L AT 75ML/HR. ON AND INFUSING WELL. NO INFILTRATION AND NO REDNESS NOTED.BED IN LOWEST POSITION, SIDE RAILS UP X2. WILL CONTINUE TO MONITOR.
[2019-09-06 08:00] VITALS: BP 118/76
[2019-09-06] MEDS: ENSURE ENLIVE 237 ML LIQUID (VANILLA) PO SCH ×3 (08:00→17:35)
[2019-09-06 09:17] LABS: MAGNESIUM 2.1 mg/dL (1.8-2.4)
[2019-09-06] MEDS: PANTOPRAZOLE 40 MG TABLET.DR PO SCH (09:20)
[2019-09-06] MEDS: MEGESTROL ACETATE SUSP 400 MG/10 ML UDC PO SCH ×2 (09:20→17:35)
[2019-09-06] MEDS: RIVASTIGMINE TARTRATE 4.6 MG PATCH.TD24 TD SCH (09:20)
[2019-09-06] MEDS: THERAHONEY GEL 1.5 OZ TUBE TP SCH (09:26)
[2019-09-06] MEDS: POTASSIUM CHLORIDE 20 MEQ TAB.PRT.SR PO SCH ×5 (09:29→13:14)
[2019-09-06 12:00] VITALS: BP 126/72
[2019-09-06] MEDS: IV NS 0.9% 1,000 ML IV PRN (13:21)
[2019-09-06 16:00] VITALS: BP 124/80
--- NOTE | 2019-09-06 19:18 | NUR ---
MS/RN CLOSING NOTES PATIENT AWAKE,LYING COMFORTABLY ON THE BED. PATIENT IS ALERT AND ORIENTED X1. NO APPARENT DISTRESS NOTED. NO S/S OF PAIN NOTED. NASAL CANNULA WAS IN PLACED AT 3L/MIN. IVF OF NS1L ON AND INFUSING WELL. SEEN AND EXAMINED BY MD WITH ORDERS MADE AND CARRIED OUT. ALL DUE MEDS WAS GIVEN. WOUND CARE WAS DONE. BED IN LOWEST POSITION, SIDE RAILS UP X2. BED IN LOWEST POSITION, SIDE RAILS UP X2. WILL ENDORSED TO RESIDENCE SUPERVISOR FOR ROXIE.
[2019-09-06 20:00] VITALS: BP 124/62
[2019-09-06] MEDS: OLANZAPINE 10 MG TABLET PO SCH (21:37)
[2019-09-06] MEDS: TAMSULOSIN 0.4 MG CAP.SR.24H PO SCH (21:39)
[2019-09-07] MEDS: IV NS 0.9% 1,000 ML IV PRN (02:44)
[2019-09-07 04:00] VITALS: BP 114/75
[2019-09-07] MEDS: CEFEPIME 2 GM in IV D5W 100 ML IV SCH ×2 (05:56→12:19)
[2019-09-07] MEDS: VANCOMYCIN 1 GM in IV D5W 250 ML IV SCH ×2 (05:56→17:23)
[2019-09-07 06:33] LABS: BASOPHILS # (AUTO) 0.1 /CMM (0.0-0.2); BASOPHILS % (AUTO) 0.4 % (0.0-2.0); EOSINOPHILS % (AUTO) 0.9 % (0.0-6.0); HEMATOCRIT 36 % (39-51); HEMOGLOBIN 11.8 g/dL (13.5-17.5); LYMPHOCYTES # (AUTO) 0.9 /CMM (0.8-4.8); LYMPHOCYTES % (AUTO) 6.2 % (20.0-44.0); MEAN CORPUSCULAR HGB CONC 33 g/dl (31.0-36.0); MEAN CORPUSCULAR VOLUME 95 fL (80-96); MONOCYTES # (AUTO) 1.1 /CMM (0.1-1.30); MONOCYTES % (AUTO) 7.5 % (2.0-12.0); NEUTROPHILS # (AUTO) 12.9 /CMM (1.8-8.9); PLATELET COUNT (AUTO) 511 /CMM (150-450); WHITE BLOOD COUNT (AUTO) 15.2 K/uL (4.3-11.0)
[2019-09-07 07:14] LABS: ALBUMIN 1.6 g/dL (3.4-5.0); BILIRUBIN,TOTAL 0.5 mg/dL (0.2-1.0); CREATININE 0.7 mg/dL (0.6-1.3); MAGNESIUM 1.9 mg/dL (1.8-2.4); PHOSPHORUS 2.3 mg/dL (2.5-4.9); POTASSIUM 3.4 mmol/L (3.5-5.1); TOTAL PROTEIN, SERUM 5.6 g/dL (6.4-8.2)
--- NOTE | 2019-09-07 07:30 | NUR ---
RN OPENING NOTE Received patient in bed asleep. AO x1. On NC 3L tolerating well. No signs of distress. No signs of pain or discomfort. Appears calm and relaxed. Patient has L. Wrist Peripheral IV line running NS @ 75cc/hr and RFA IV line, flushed and patent. Patient is on a cam catheter draining clear yellow urine. Safety measure implemented. Bed on locked and lowest position. Call light within reach will cont to monitor.
[2019-09-07 08:00] VITALS: BP 118/72
[2019-09-07] MEDS: ENSURE ENLIVE 237 ML LIQUID (VANILLA) PO SCH ×3 (08:00→17:00)
[2019-09-07 08:23] LABS: BAND % (MANUAL) 1 % (0.0-5.0); EOSINOPHILS % (MANUAL) 2 % (0-4); LYMPHOCYTES % (MANUAL) 9 % (16-48); MONOCYTES % (MANUAL) 4 % (0-11.0); MYELOCYTES % 1 % (0-0); NEUTROPHILS % (MANUAL) 83 (42-76)
[2019-09-07] MEDS: THERAHONEY GEL 1.5 OZ TUBE TP SCH (09:00)
[2019-09-07] MEDS: PANTOPRAZOLE 40 MG TABLET.DR PO SCH (09:18)
[2019-09-07] MEDS: MEGESTROL ACETATE SUSP 400 MG/10 ML UDC PO SCH ×2 (09:19→17:23)
[2019-09-07] MEDS ORDERED: POTASSIUM PHOSPHATE MM 15 MMOL in IV NS 0.9% 250 ML IV SCH (10:00)
[2019-09-07] MEDS: POTASSIUM PHOSPHATE MM 7.5 MMOL in IV D5W 100 ML IV SCH ×2 (10:35→12:19)
[2019-09-07] MEDS: RIVASTIGMINE TARTRATE 4.6 MG PATCH.TD24 TD SCH (10:35)
[2019-09-07 12:00] VITALS: BP 92/68
[2019-09-07] MEDS ORDERED: FUROSEMIDE 40 MG/4 ML VIAL IV ONE (16:30)
--- NOTE | 2019-09-07 16:45 | NUR ---
RN NOTE Patient was transferred to [address] [place] [address] in stable condition. Together with IV meds and oxygen. In room 307.
--- NOTE | 2019-09-07 18:45 | NUR ---
MS/RN Closing Note Patient in bed sleeping comfortably, transferred from 1st floor/ DALJIT, does no appears pain or any discomfort. Skin is warm to touch, kept clean/dry, intact midline and good patent with NS flash. Respiratory even and unlabored with oxygen at 3LPM. Keep remain lower bed of position with locked wheel a and elevated HOB. Call light within reach, all needs met. Will endorse to shift leader. Addendum: 09/07/19 at 1907 by HOWIE MOCTEZUMA RN error
--- NOTE | 2019-09-07 18:45 | NUR ---
MS/RN Closing Note Patient in bed sleeping comfortably, pt transferred from 1st floor/DALJIT. does no appears . Skin is warm to touch, kept clean/dry, intact IV line and good patent with NS flash. Respiratory even and unlabored with room oxygen at 2LPM. Keep remain lower bed of position with locked wheel a and elevated HOB. Call light within reach, all needs met. Will endorse to landscape engineer.
--- NOTE | 2019-09-07 19:45 | NUR ---
RN OPENING NOTES RECEIVED REPORT FROM [facility] ISA DENISE. FOUND Pt AWAKE, RESTING IN BED. Pt IS A/OX1, CONFUSED, BUT IS VERBAL ENOUGH TO ANSWER SIMPLE QUESTIONS. KELLEY CATHETER IS IN PLACE, DRAINING WELL. IV ACCESS ON L WRIST #22G @TKO. SAFETY MEASURES IN PLACE. BED LOW, LOCKED, HOB ELEVATED, SIDE RAILS UP, BED ALARM ON. WILL CONTINUE TO MONITOR Pt's CONDITION AND SAFETY THROUGHOUT THE NIGHT.
[2019-09-07 19:56] VITALS: BP 114/72
--- NOTE | 2019-09-07 20:00 | NUR ---
RN NOTES TURNED AND REPOSITIONED TO THE RIGHT SIDE.
[2019-09-07 20:30] VITALS: BP 114/72
[2019-09-07] MEDS: FLUCONAZOLE IN NS 100 MG in PREMIX 1 EA IV SCH ×2 (20:48)
--- NOTE | 2019-09-07 22:00 | NUR ---
RN NOTES TURNED AND REPOSITIONED TO THE LEFT SIDE.
[2019-09-07] MEDS: TAMSULOSIN 0.4 MG CAP.SR.24H PO SCH (22:26)
[2019-09-07] MEDS: OLANZAPINE 10 MG TABLET PO SCH (22:27)
--- NOTE | 2019-09-08 | NUR ---
RN NOTES TURNED & REPOSITIONED TO LEFT. OFFLOADING GRAZYNA HEELS.
--- NOTE | 2019-09-08 02:00 | NUR ---
RN NOTES TURNED AND REPOSITIONED TO THE RIGHT. OFFLOADING HEELS.
--- NOTE | 2019-09-08 04:00 | NUR ---
RN NOTES TURNED AND REPOSITIONED TO LEFT. OFFLOADING HEEL.
[2019-09-08 04:34] LABS: CALCIUM, SERUM 8.5 mg/dL (8.5-10.1); CREATININE 0.9 mg/dL (0.6-1.3); POTASSIUM 3.4 mmol/L (3.5-5.1)
--- NOTE | 2019-09-08 06:00 | NUR ---
RN NOTES TURNED AND REPOSITIONED. OFFLOADING RIGHT SIDE.
--- NOTE | 2019-09-08 06:40 | NUR ---
RN CLOSING NOTES NO SIGNIFICANT CHANGES IN Pt's CONDITION. Pt IS RESTING IN BED WITH UNLABORED RESPIRATIONS AND EQUAL CHEST RISE AND FALL. ALL NEEDS MET AND ATTENDED TO. SAFETY MEASURES IN PLACE. WILL ENDORSE TO DAYSHIFT RN FOR Pt's ROXIE.
[2019-09-08] MEDS: PANTOPRAZOLE 40 MG TABLET.DR PO SCH (07:30)
[2019-09-08] MEDS: ENSURE ENLIVE 237 ML LIQUID (VANILLA) PO SCH ×3 (08:00→17:00)
[2019-09-08 09:00] VITALS: BP 98/65
[2019-09-08] MEDS: CARVEDILOL 6.25 MG TABLET PO SCH ×2 (09:00→20:44)
[2019-09-08] MEDS: MEGESTROL ACETATE SUSP 400 MG/10 ML UDC PO SCH ×2 (09:00→18:24)
[2019-09-08] MEDS ORDERED: POTASSIUM CHLORIDE 20 MEQ POWDER PACKET PO SCH (10:00)
[2019-09-08] MEDS: RIVASTIGMINE TARTRATE 4.6 MG PATCH.TD24 TD SCH (10:22)
[2019-09-08] MEDS: THERAHONEY GEL 1.5 OZ TUBE TP SCH (10:27)
[2019-09-08] MEDS: POTASSIUM CL. PREMIX PERIPHER. 50 ML IV SCH ×2 (10:44→12:40)
[2019-09-08 16:00] VITALS: BP 96/63
--- NOTE | 2019-09-08 18:00 | NUR ---
REFUSING MOST OF MEAL,REPOSITIONED FREQ.WD CARE DONE.POTASSIUM REPLACEMENT GIVEN.
--- NOTE | 2019-09-08 19:15 | NUR ---
MS RN NOTES RECEIVED ON BED A/I X1,CONFUSED,ON LEFT SIDE POSITION,BREATHING NON LABORED,O2 3L/NC IN USED TO KEEP O2 SAT ABOVE 90%.ON KCI MATTRESS FOR SKIN MANAGEMENT.MRSA NARES,NO ISOLATION.ASPIRATION PRECAUTION,HOB ELEVATED.ON PUREED DIET,CRUSHED MEDS.SALINE LOCK LEFT WRIST INTACT AND PATENT.WILL CONTINUE TO MONITOR STATUS.
[2019-09-08 19:54] VITALS: BP 102/61
[2019-09-08] MEDS: FLUCONAZOLE IN NS 100 MG in PREMIX 1 EA IV SCH ×2 (19:56)
[2019-09-08 20:00] VITALS: BP 102/61
[2019-09-08] MEDS: TAMSULOSIN 0.4 MG CAP.SR.24H PO SCH (22:00)
[2019-09-08] MEDS: OLANZAPINE 10 MG TABLET PO SCH (22:01)
--- NOTE | 2019-09-09 06:28 | NUR ---
MS RN NOTES IN BED,CALM AND QUIET.MORNING CARE RENDERED.PO MEDS TOLERATED WITH THICKENER.NO ASPIRATION NOTED.REPOSITION PER PROTOCOL.MRSA NARES,IN NO ACUTE DISTRESS.DNR.DNI STATUS.WILL ENDORSE TO DAY NURSE FOR ROXIE.
[2019-09-09 06:29] LABS: BASOPHILS # (AUTO) 0.1 /CMM (0.0-0.2); BASOPHILS % (AUTO) 0.5 % (0.0-2.0); EOSINOPHILS % (AUTO) 0.6 % (0.0-6.0); HEMATOCRIT 38 % (39-51); HEMOGLOBIN 12.3 g/dL (13.5-17.5); LYMPHOCYTES # (AUTO) 1.1 /CMM (0.8-4.8); LYMPHOCYTES % (AUTO) 8.8 % (20.0-44.0); MEAN CORPUSCULAR HGB CONC 33 g/dl (31.0-36.0); MEAN CORPUSCULAR VOLUME 94 fL (80-96); MONOCYTES # (AUTO) 1.2 /CMM (0.1-1.30); MONOCYTES % (AUTO) 9.5 % (2.0-12.0); NEUTROPHILS # (AUTO) 9.9 /CMM (1.8-8.9); NEUTROPHILS % (AUTO) 80.6 % (43.0-81.0); PLATELET COUNT (AUTO) 627 /CMM (150-450); RED BLOOD CELL COUNT(AUTO) 3.99 MIL/uL (4.5-6.0); WHITE BLOOD COUNT (AUTO) 12.3 K/uL (4.3-11.0)
[2019-09-09 06:43] LABS: CALCIUM, SERUM 8.6 mg/dL (8.5-10.1); CREATININE 0.8 mg/dL (0.6-1.3); POTASSIUM 3.3 mmol/L (3.5-5.1)
--- NOTE | 2019-09-09 07:15 | NUR ---
MS RN NOTES RECEIVED PATIENT IN BED ASLEEP. AROUSABLE TO VERBAL AND TACTILE STIMULI. HOB ELEVATED. ALERT AND ORIENTED X1. KELLEY CATHETER INTACT AND PATENT DRAINING YELLOW COLORED URINE VIA BEDSIDE. BED IN LOWEST POSITION, LOCKED. BED ALARM ON. CALL LIGHT WITHIN REACH.
[2019-09-09] MEDS: PANTOPRAZOLE 40 MG TABLET.DR PO SCH (07:30)
[2019-09-09 08:00] VITALS: BP 146/56
[2019-09-09] MEDS: ENSURE ENLIVE 237 ML LIQUID (VANILLA) PO SCH ×3 (08:00→17:00)
[2019-09-09 09:00] VITALS: BP 96/58
[2019-09-09] MEDS: POTASSIUM CHLORIDE 20 MEQ TAB.PRT.SR PO SCH ×3 (09:00→11:12)
[2019-09-09] MEDS: CARVEDILOL 6.25 MG TABLET PO SCH (09:00)
[2019-09-09] MEDS: MEGESTROL ACETATE SUSP 400 MG/10 ML UDC PO SCH ×2 (09:09→17:00)
[2019-09-09] MEDS: RIVASTIGMINE TARTRATE 4.6 MG PATCH.TD24 TD SCH (09:09)
[2019-09-09] MEDS: THERAHONEY GEL 1.5 OZ TUBE TP SCH (09:10)
[2019-09-09] MEDS ORDERED: FLUC100T8 PO (12:39)
--- NOTE | 2019-09-09 17:00 | NUR ---
MS ISA CABEZAS PATIENT ALERT X1. NO S/S OF RESPIRATORY DISTRESS. ON O2 @ 3L/MIN VIA NC. PATIENT WITH EPISODES OF REMOVING NASAL CANNULA WITH AN SPO2 92-97 % ROOM AIR. NO EVIDENCE OF PAIN NOR DISCOMFORT AT THIS TIME. NO S/S OF ACUTE DISTRESS. ALL BELONGINGS ACCOUNTED FOR. DISCHARGE INSTRUCTIONS GIVEN AND REPORT GIVEN TO SNF ISA ANDREWS. PATIENT LEFT IN STABLE CONDITION ACCOMOANIED BY 2 EMT.
== END 2019-09-09 17:05 | DRG 166 ==
LOC: ER 12:01 → TELE1 15:17 → MEDSG1 09-05 08:13 → MED 09-07 16:10
PROVIDERS: ADMIT Family Medicine; ATTEND Hospitalist
PROC: 0JB90ZZ Excision of Buttock Subcutaneous Tissue and Fascia, Open Approach (ICD-10-PCS; principal; 2019-09-04)
DX: B37.1 Pulmonary candidiasis (principal); L89.323 Pressure ulcer of left buttock, stage 3; E43 Unspecified severe protein-calorie malnutrition; G93.41 Metabolic encephalopathy; N17.0 Acute kidney failure with tubular necrosis; J96.01 Acute respiratory failure with hypoxia; J98.11 Atelectasis; G82.20 Paraplegia, unspecified; M48.54XA Collapsed vertebra, not elsewhere classified, thoracic region, initial encounter for fracture; G30.9 Alzheimer's disease, unspecified; F02.80 Dementia in other diseases classified elsewhere, unspecified severity, without behavioral disturbance, psychotic disturbance, mood disturbance, and anxiety; K21.9 Gastro-esophageal reflux disease without esophagitis; Z66 Do not resuscitate; Z51.5 Encounter for palliative care; R13.10 Dysphagia, unspecified; E86.0 Dehydration; R62.7 Adult failure to thrive; N40.0 Benign prostatic hyperplasia without lower urinary tract symptoms; F41.9 Anxiety disorder, unspecified; L89.156 Pressure-induced deep tissue damage of sacral region; L89.106 Pressure-induced deep tissue damage of unspecified part of back; L89.626 Pressure-induced deep tissue damage of left heel; L89.896 Pressure-induced deep tissue damage of other site; M62.562 Muscle wasting and atrophy, not elsewhere classified, left lower leg; M62.561 Muscle wasting and atrophy, not elsewhere classified, right lower leg; B37.9 Candidiasis, unspecified; Z22.322 Carrier or suspected carrier of Methicillin resistant Staphylococcus aureus
CPT/HCPCS: 36415; 70450-TC; 71045-TC; 71250-TC; 80048-TC; 80053-TC; 80061-TC; 80076-TC; 80202-TC; 81000-TC; 82550-TC; 82728-TC; 83605-TC; 83615-TC; 83735-TC; 83880; 84100-TC; 84439-TC; 84443-TC; 84484-TC; 85025-TC; 85378-TC; 85385-TC; 85730-TC; 86140-TC; 87040-TC; 87070-TC; 87081-TC; 87086-TC; 92526; 92611-TC; 93307-TC; 97112-TC; 97530-TC; 97535-TC; A4216; A6253; A6403; G0378; J0456; J0692; J1450; J1940; J3370; J3480; J3490; J7030; J7050; J7060; U0002

== ENCOUNTER 2019-09-25 14:37 | Inpatient (IN) | payer MEDICARE, OTHER ==
[~2019-09-25] VITALS: Ht 175.3 cm; Wt 57.2 kg
[~2019-09-25 14:37] MED LIST: CLON2TAB PO; FLUC100T8 PO; LORA-258 PO; MEGE400O6 PO; OLAN15TA3 PO; PANT40TA2 PO; RIVA1PAT3 TD; TAMS-12 PO; TEMA30CA5 PO
[2019-09-25] MEDS ORDERED: FEE PK DOSING 1 MIN EA MC ONE (14:46)
[2019-09-25] MEDS ORDERED: IV NS 0.9% 1,000 ML IV ONE (14:55)
--- NOTE | 2019-09-25 15:00 | NUR ---
BIB ems frm snf c/o abnormal labs, wbc 25 and O2sat 80%. Patient non-verbal. O2 4lpm via nc with spo2 of 96%. Attached to the panelbeater. Needs attended. IV line established.
[2019-09-25 15:22] LABS: ABG BASE EXCESS -6.7 mmol/L; ABG PCO2 18.6 mmHg (35.0-45.0); ABG PH 7.495 (7.350-7.450); ABG PO2 86.1 mmHg (75.0-100.0); AaDO2 120.3 mmHg; COHb 0.6 % (0.5-1.5); MetHb 0.2 % (0.0-1.5); O2Hb 95.2 % (94.0-97.0); SITE, ABG Right Radial
[2019-09-25 15:26] LABS: BASOPHILS # (AUTO) 0.1 /CMM (0.0-0.2); BASOPHILS % (AUTO) 0.4 % (0.0-2.0); HEMATOCRIT 44 % (39-51); HEMOGLOBIN 14.2 g/dL (13.5-17.5); LYMPHOCYTES # (AUTO) 1.2 /CMM (0.8-4.8); LYMPHOCYTES % (AUTO) 4.6 % (20.0-44.0); MEAN CORPUSCULAR HGB CONC 32 g/dl (31.0-36.0); MEAN CORPUSCULAR VOLUME 95 fL (80-96); MONOCYTES # (AUTO) 1.2 /CMM (0.1-1.30); MONOCYTES % (AUTO) 4.3 % (2.0-12.0); NEUTROPHILS # (AUTO) 24.4 /CMM (1.8-8.9); NEUTROPHILS % (AUTO) 90.7 % (43.0-81.0); PLATELET COUNT (AUTO) 448 /CMM (150-450); RED BLOOD CELL COUNT(AUTO) 4.67 MIL/uL (4.5-6.0); WHITE BLOOD COUNT (AUTO) 26.9 K/uL (4.3-11.0)
--- NOTE | 2019-09-25 15:27 | NUR ---
Unable to collect urine, due to blockage when attempting to insert a cam catheter. Dr. Hathaway made aware.
[2019-09-25 15:34] LABS: CALCIUM, SERUM 9.1 mg/dL (8.5-10.1); CARBON DIOXIDE 24 mmol/L (21-32); CHLORIDE 115 mmol/L (98-107); CREATININE 1.4 mg/dL (0.6-1.3); GLUCOSE 111 mg/dL (74-106); POTASSIUM 3.8 mmol/L (3.5-5.1); SODIUM SERUM 154 mmol/L (136-145); UREA NITROGEN, BLOOD 47 mg/dL (7-18)
--- NOTE | 2019-09-25 15:36 | NUR ---
ABG RESULT GIVEN TO DR. MONGE
[2019-09-25 15:50] LABS: ALANINE AMINOTRANSFERASE 96 U/L (12-78); ALBUMIN 2.3 g/dL (3.4-5.0); ALKALINE PHOSPHATASE 120 U/L (46-116); ASPARTATE AMINOTRANSFERASE 64 U/L (15-37); B-TYPE NATRIURETIC PEPTIDE 603 PG/ML (0-125); BILIRUBIN,TOTAL 0.4 mg/dL (0.2-1.0); TOTAL PROTEIN, SERUM 7.7 g/dL (6.4-8.2)
[2019-09-25] MEDS ORDERED: ACET325T53 PO (15:55)
[2019-09-25] MEDS ORDERED: ACET-868 PO (15:55)
[2019-09-25] MEDS ORDERED: MAG355OR18 PO (15:55)
[2019-09-25] MEDS ORDERED: MAGN400O6 PO (15:55)
[2019-09-25] MEDS ORDERED: TAMS-12 PO (15:55)
[2019-09-25] MEDS ORDERED: PANT40TA2 PO (15:55)
[2019-09-25] MEDS ORDERED: ASCO-373 PO (15:55)
[2019-09-25] MEDS ORDERED: BISA10SU11 RC (15:55)
[2019-09-25] MEDS ORDERED: NA P133E RC (15:55)
[2019-09-25] MEDS ORDERED: ZINC220C6 PO (15:55)
[2019-09-25] MEDS ORDERED: RIVA1PAT3 TD (15:55)
[2019-09-25] MEDS ORDERED: MULT-447 PO (15:55)
[2019-09-25] MEDS ORDERED: OLAN15TA3 PO (15:55)
[2019-09-25] MEDS ORDERED: CLON2TAB PO (15:55)
[2019-09-25 16:07] LABS: D-DIMER 3.6 mg/L(FEU (0.17-0.50)
[2019-09-25 16:18] LABS: LYMPHOCYTES % (MANUAL) 5 % (16-48); MONOCYTES % (MANUAL) 2 % (0-11.0); NEUTROPHILS % (MANUAL) 93 (42-76)
[2019-09-25 17:21] LABS: C-REACTIVE PROTEIN 21.6 mg/dL (0.0-0.9)
[2019-09-25 17:23] LABS: CREATINE KINASE, TOTAL 254 U/L (39-308); FERRITIN 3495 ng/mL (8-388)
[2019-09-25] MEDS ORDERED: VANCOMYCIN 1 GM in IV D5W 250 ML IV ONE (17:30)
[2019-09-25] MEDS ORDERED: CEFEPIME 1 GM in IV D5W 50 ML IV ONE (17:30)
--- NOTE | 2019-09-25 17:46 | NUR ---
MARTIN WOOD, AND SPOKE WITH DR. MONGE.
[2019-09-25] MEDS ORDERED: IV NS 0.9% 1,000 ML BAG IV ONE (18:00)
[2019-09-25] MEDS ORDERED: NA PHOS,M-B/NA PHOS,DI-BA 1 EA ENEMA RC PRN (19:00)
[2019-09-25] MEDS ORDERED: MAG HYDROX/AL HYDROX/SIMETH 30 ML UDC PO PRN (19:00)
[2019-09-25] MEDS ORDERED: MAGNESIUM HYDROXIDE 30 ML UDC PO PRN ×2 (19:00)
[2019-09-25] MEDS ORDERED: Z GUARD REMEDY 2 OZ OINT TP PRN (19:00)
[2019-09-25] MEDS ORDERED: ONDANSETRON HCL/PF 4 MG/2 ML VIAL IVP PRN (19:00)
[2019-09-25] MEDS ORDERED: LORAZEPAM 0.5 MG TABLET PO PRN (19:00)
[2019-09-25] MEDS ORDERED: BISACODYL SUPP (10 MG) 10 MG/SUPP.RECT SUPP.RECT RC PRN (19:00)
[2019-09-25] MEDS ORDERED: HYDROCODONE/APAP 5/325MG 1 EACH TABLET PO PRN (19:00)
[2019-09-25] MEDS ORDERED: AZITHROMYCIN 500 MG in IV D5W 250 ML IV SCH (19:00)
--- NOTE | 2019-09-25 19:35 | NUR ---
REPORT RECEIVED FROM ISA DUGGAN
--- NOTE | 2019-09-25 20:02 | NUR ---
PT EASILY AROUSABLE, NO ACUTE DISTRESS NOTED. WILL CONTINUE TO MONITOR
--- NOTE | 2019-09-25 20:43 | NUR ---
NURSE WILL CALL BACK FOR REPORT
[2019-09-25] MEDS ORDERED: AZITHROMYCIN 250 MG TABLET PO SCH (21:00)
[2019-09-25] MEDS ORDERED: AZITHROMYCIN 250 MG TABLET PO ONE ×2 (21:00→23:30)
--- NOTE | 2019-09-25 21:15 | NUR ---
NURSE WILL CALL BACK FOR REPORT
--- NOTE | 2019-09-25 21:42 | NUR ---
CALLED TO GIVE REPORT, NO ANSWER
--- NOTE | 2019-09-25 21:54 | NUR ---
REPORT GIVEN TO ISA MIRANDA FOR ROXIE
[2019-09-25 22:30] VITALS: BP 102/73
--- NOTE | 2019-09-25 22:30 | NUR ---
RN NOTE RECEIVED PT FROM ER VIA [facility] ACCOMPANIED BY 2 RNS. PT TRANSFERRED FROM GURCLUTIER TO BED USING 2 PERSON ASSIST. COMPREHENSIVE PHYSICAL ASSESSMENT DONE. WILL MONITOR PATIENT.
[2019-09-25] MEDS: IV 1/2NS 1000 ML 1,000 ML IV SCH (22:59)
[2019-09-25] MEDS: HYDROXYCHLOROQUINE 200 MG TABLET PO SCH (23:24)
[2019-09-25] MEDS: clonazePAM 1 MG TABLET PO SCH (23:24)
[2019-09-26] VITALS: BP 90/68
[2019-09-26] MEDS ORDERED: PIPERACILLIN /TAZOBACTAM 2.25 G in IV D5W 50 ML IV SCH ×2
[2019-09-26 04:00] VITALS: BP 94/62
[2019-09-26] MEDS: IV 1/2NS 1000 ML 1,000 ML IV SCH ×2 (04:18→14:22)
--- NOTE | 2019-09-26 06:28 | NUR ---
RN NOTE PATIENT RESTING IN BED IN SEMI HUNT'S POSITION. PT SS NON VERBAL AND MAKES INCOMPREHENSIBLE SOUNDS(BASELINE). RESPIRATIONS EVEN AND UNLABORED. O2 SATURATION 97% WHILE ON 5L OF O2 VIA FACEMASK. WITH RIGHT FOREARM 18G IV RUNNING WITH 0.45% NS @100ML/HOUR ORDERED. NO SIGNS OF INFILTRATION OR INFECTION AT SITE. CURRENTLY NPO ORDERED. ON TELE MONITOR SHOWING SINUS RHYTHM. CALL LIGHT WITHIN REACH, BED LOCKED AND IN LOW POSITION. SAFETY MEASURES IN PLACE. WILL ENDORSE TO MORNING SHIFT FOR CONTINUATION OF CARE.
[2019-09-26 06:30] LABS: BASOPHILS # (AUTO) 0.1 /CMM (0.0-0.2); BASOPHILS % (AUTO) 0.3 % (0.0-2.0); EOSINOPHILS % (AUTO) 0.7 % (0.0-6.0); HEMATOCRIT 38 % (39-51); HEMOGLOBIN 12.1 g/dL (13.5-17.5); LYMPHOCYTES % (AUTO) 5.3 % (20.0-44.0); MEAN CORPUSCULAR HGB CONC 32 g/dl (31.0-36.0); MEAN CORPUSCULAR VOLUME 96 fL (80-96); MONOCYTES # (AUTO) 0.9 /CMM (0.1-1.30); MONOCYTES % (AUTO) 4.8 % (2.0-12.0); NEUTROPHILS # (AUTO) 16.5 /CMM (1.8-8.9); NEUTROPHILS % (AUTO) 88.9 % (43.0-81.0); PLATELET COUNT (AUTO) 339 /CMM (150-450); RED BLOOD CELL COUNT(AUTO) 3.94 MIL/uL (4.5-6.0); WHITE BLOOD COUNT (AUTO) 18.5 K/uL (4.3-11.0)
[2019-09-26 07:13] LABS: ALBUMIN 1.9 g/dL (3.4-5.0); BILIRUBIN,DIRECT 0.1 mg/dL (0.0-0.2); BILIRUBIN,TOTAL 0.4 mg/dL (0.2-1.0); CALCIUM, SERUM 8.3 mg/dL (8.5-10.1); MAGNESIUM 2.4 mg/dL (1.8-2.4); PHOSPHORUS 3.1 mg/dL (2.5-4.9); POTASSIUM 3.3 mmol/L (3.5-5.1); TOTAL PROTEIN, SERUM 6.2 g/dL (6.4-8.2)
[2019-09-26] MEDS: PANTOPRAZOLE 40 MG TABLET.DR PO SCH (07:30)
--- NOTE | 2019-09-26 07:30 | NUR ---
RN NOTES RECEIVED PATIENT RESTING IN BED. PT A/O X1, UNABLE TO FOLLOW COMMANDS, MAKES UNCOMPREHENDING SOUNDS WHICH IS BASELINE FOR THE PATIENT. PATIENT IS NPO AT THE MOMENT, ST SCHEDULED FOR TODAY. PATIENT ASPIRATED DURING THE NURSING SWALLOW EVAL DURING THE RECORDS COORDINATOR. ON 5L VIA MASK, TOLERATING WELL, SATURATING WELL, NO SOB NOTED, NO RESPIRATORY DISTRESS NOTED. IV ON RIGHT FOREARM INTACT, PATENT, AND FLUSHED WELL. NO S/S OF INFECTION NOTED. SAFETY MAINTAINED, CALL LIGHT WITHIN REACH, WILL CONTINUE TO MONITOR CLOSELY.
[2019-09-26 08:00] VITALS: BP 109/57
[2019-09-26] MEDS: HYDROXYCHLOROQUINE 200 MG TABLET PO SCH (09:00)
[2019-09-26] MEDS: ASCORBIC ACID 500 MG TABLET PO SCH (09:00)
[2019-09-26] MEDS: MAG HYDROX/AL HYDROX/SIMETH 30 ML UDC PO SCH ×2 (09:00→17:00)
[2019-09-26] MEDS: MEGESTROL ACETATE SUSP 400 MG/10 ML UDC PO SCH ×2 (09:00→17:00)
[2019-09-26] MEDS: ZINC SULFATE 220 MG CAPSULE PO SCH (09:00)
[2019-09-26] MEDS: MULTIVIT W/MINERALS 1 TAB TABLET PO SCH (09:00)
--- NOTE | 2019-09-26 09:37 | NUR ---
WOUND CARE CONSULT: PT FOLLOWED BY SURGICAL TEAMS FOR WOUND CARE. DEFER TO PODIATRY AND PLASTIC SURGERY TEAM FOR WOUND TREATMENT PLAN. DISCUSSED SKIN PROTECTION WITH NURSING STAFF. FIRST STEP LOW AIRLOSS MATTRESS ON ORDER. WILL SEE PRNJeffy BLACKMON IN AGREEMENT WITH PLAN OF CARE. DR RAY AND DR HERRERA NOTIFIED OF CONSULT REQUEST.
--- NOTE | 2019-09-26 11:00 | NUR ---
RN NOTE PATIENT FAILED SWALLOW EVAL, STARTED DESATURATION POST EVAL, RT CALLED FOR DEEP SUCTIONING. PATIENT SATURATING WELL AT THE MOMENT, SAFETY MAINTAINED, CALL LIGHT WITHIN REACH, WILL MONITOR CLOSELY.
[2019-09-26] MEDS: POTASSIUM CL. PREMIX PERIPHER. 50 ML IV SCH ×2 (11:12→12:19)
[2019-09-26] MEDS: VANCOMYCIN 1 GM in IV D5W 250 ML IV SCH (11:20)
[2019-09-26 12:00] VITALS: BP 106/65
[2019-09-26 12:46] LABS: BAND % (MANUAL) 2 % (0.0-5.0); LYMPHOCYTES % (MANUAL) 5 % (16-48); MONOCYTES % (MANUAL) 3 % (0-11.0); NEUTROPHILS % (MANUAL) 90 (42-76)
--- NOTE | 2019-09-26 13:30 | NUR ---
RM NOTE PATIENT PLACED ON FIRST STEP BED PER WOUND CARE NURSE ORDER. SAFETY MAINTAINED, CALL LIGHT WITHIN REACH, WILL CONTINUE TO MONITOR CLOSELY.
[2019-09-26 16:00] VITALS: BP 99/71
[2019-09-26] MEDS ORDERED: HYDROXYCHLOROQUINE 200 MG TABLET PO SCH (17:00)
--- NOTE | 2019-09-26 18:57 | NUR ---
PT ENDORSED TO PM NURSE FOR CONTINUITY OF CARE.
--- NOTE | 2019-09-26 19:35 | NUR ---
RN NOTE PATIENT RESTING IN BED IN SEMI HUNT'S POSITION. PATIENT NON VERBAL BUT PHYSICALLY RESPONSIVE TO VERBAL AND TACTILE STIMULI. O2 SATURATION WNL WHILE ON 5L OF O2 VIA NC. WITH IVF RUNNING WITH 0.45% NS @ 100ML/HOUR. PATIENT CURRENTLY ON NPO STATUS DUE TO FAILED SWALLOW EVALUATION TODAY. CALL LIGHT WITHIN REACH, SAFETY MEASURES IMPLEMENTED. WILL MONITOR PATIENT.
[2019-09-26 20:00] VITALS: BP 92/60
[2019-09-26] MEDS: clonazePAM 1 MG TABLET PO SCH (21:19)
--- NOTE | 2019-09-26 21:19 | NUR ---
RN NOTE PO MEDICATIONS HELD DUE TO NPO STATUS. AWARE.
[2019-09-26] MEDS ORDERED: AZITHROMYCIN 250 MG TABLET PO SCH (22:00)
[2019-09-26] MEDS: PIPERACILLIN /TAZOBACTAM 2.25 G in IV D5W 50 ML IV SCH (23:04)
[2019-09-27] VITALS (7 sets, daily range): BP systolic 81–112; BP diastolic 50–71
[2019-09-27] MEDS: IV 1/2NS 1000 ML 1,000 ML IV SCH ×3 (00:04→16:29)
--- NOTE | 2019-09-27 01:29 | NUR ---
RN NOTE RECEIVED ALERT FOR PRELIMINARY BLOOD CULTURES WHICH SHOWS GRAM POSITIVE COCCI IN CLUSTERS. PT IS ALREADY ON VANCOMYCIN IV AND ZOSYN IV. NOTIFIED KASEY DELUCA ([facility]RET).
--- NOTE | 2019-09-27 01:35 | NUR ---
RN NOTE PAINTER MIRROR KASEY DELUCA CALLED BACK REGARDING BLOOD CULTURE RESULT WITH NO NEW ORDERS.
[2019-09-27] MEDS: PIPERACILLIN /TAZOBACTAM 2.25 G in IV D5W 50 ML IV SCH (05:01)
[2019-09-27] MEDS: VANCOMYCIN 1 GM in IV D5W 250 ML IV SCH ×2 (06:14→17:15)
--- NOTE | 2019-09-27 06:23 | NUR ---
RN NOTE PATIENT RESTING IN BED IN SEMI HUNT'S POSITION. RESPIRATIONS EVEN AND UNLABORED WHILE ON 2L OF O2 VIA NC. NO ACUTE CHANGES OBSERVED OVERNIGHT. CALL LIGHT WITHIN REACH, SAFETY MEASURES IN PLACE, WILL ENDORSE TO MORNING SHIFT FOR CONTINUATION OF CARE.
[2019-09-27 06:33] LABS: CALCIUM, SERUM 7.8 mg/dL (8.5-10.1); CREATININE 0.9 mg/dL (0.6-1.3); POTASSIUM 3.5 mmol/L (3.5-5.1)
[2019-09-27] MEDS: PANTOPRAZOLE 40 MG TABLET.DR PO SCH ×2 (07:30→07:57)
--- NOTE | 2019-09-27 07:43 | NUR ---
MS RN OPENING NOTES RECEIVED PATIENT IN BED, ASLEEP. PATIENT ON OXYGEN THERAPY AT 2 LPM; BREATHING IS EVEN AND UNLABORED, NO SOB PRESENT AT THIS TIME. NO SIGNS OF PAIN SUCH FACIAL GRIMACING, GUARDING OR MOANING. RFA GAUGE # 18 INFUSING 1/2 NS @100 MLS/HR. SAFETY PRECAUTIONS IN PLACE; BED IN LOW POSITION AND LOCKED, RAILS UP X2, CALL LIGHT WITHIN REACH. WILL CONTINUE TO MONITOR PATIENT.
[2019-09-27] MEDS: ASCORBIC ACID 500 MG TABLET PO SCH ×2 (08:13→08:56)
[2019-09-27] MEDS: MAG HYDROX/AL HYDROX/SIMETH 30 ML UDC PO SCH ×3 (08:13→16:27)
[2019-09-27] MEDS: ZINC SULFATE 220 MG CAPSULE PO SCH ×2 (08:14→08:57)
[2019-09-27] MEDS: MEGESTROL ACETATE SUSP 400 MG/10 ML UDC PO SCH ×3 (08:14→16:27)
[2019-09-27] MEDS: MULTIVIT W/MINERALS 1 TAB TABLET PO SCH ×2 (08:14→08:56)
[2019-09-27] MEDS: PIPERACILLIN /TAZOBACTAM 3.375 G in IV D5W 50 ML IV SCH ×2 (11:45→16:28)
--- NOTE | 2019-09-27 15:38 | NUR ---
PRODUCT MANAGEMENT CONSULTANT NOTES PATIENT RANSFERRED TO [facility] 3RD FLOOR ROOM 312-2. ENDORSED REPORT TO HO.
--- NOTE | 2019-09-27 15:45 | NUR ---
MS/leadership development instructor Patient transferred from [facility]. Non verbal, NPO due to two failed swallow evaluations, third scheduled for tomorrow. If unable to pass swallow evaluation, will consider NGT or PEG. Pictures taken.
--- NOTE | 2019-09-27 17:36 | NUR ---
MS/RN IVAB IVAB administered as ordered.
--- NOTE | 2019-09-27 18:13 | NUR ---
MS/RN End note Turned and repositioned every two to three hours or as condition allows. Remains NPO due to failed swallow evaluation. Does not appea in any pain or discomfort. Will endorse to automotive parts counter assistant.
--- NOTE | 2019-09-27 19:00 | NUR ---
TELE LINER MACHINE OPERATOR INITIAL NOTES Received report from am nurse Stella/Rn while doing pt report . Pt resting comfortably in bed without any acute distress noted. With IVF of 1/2 NS at 100ml/hr infusing at this time. Dx of PNA /SEPSIS. he's non-verbal , skin warm and dry to touch. NPO at this time and per am nurse pt failed fro video swallow eval and possible will doing another byron. He also on tele RFA 18 gauge patent and intact. ON [employer] mattress . Kept him warm and comfortable at all times. Will continue monitoring.
[2019-09-27] MEDS: clonazePAM 1 MG TABLET PO SCH (21:52)
--- NOTE | 2019-09-27 21:53 | NUR ---
ms jessica notes pt NPO for swallow eval byron.
[2019-09-28] VITALS: BP 101/55
[2019-09-28] MEDS: PIPERACILLIN /TAZOBACTAM 3.375 G in IV D5W 50 ML IV SCH ×4 (00:43→18:08)
[2019-09-28 04:00] VITALS: BP 100/55
[2019-09-28] MEDS: IV 1/2NS 1000 ML 1,000 ML IV SCH (05:16)
[2019-09-28] MEDS: VANCOMYCIN 1 GM in IV D5W 250 ML IV SCH ×4 (06:12→22:41)
[2019-09-28 07:13] LABS: BASOPHILS % (AUTO) 0.5 % (0.0-2.0); EOSINOPHILS % (AUTO) 3.3 % (0.0-6.0); HEMATOCRIT 36 % (39-51); HEMOGLOBIN 11.8 g/dL (13.5-17.5); LYMPHOCYTES # (AUTO) 0.8 /CMM (0.8-4.8); MEAN CORPUSCULAR HGB CONC 33 g/dl (31.0-36.0); MEAN CORPUSCULAR VOLUME 94 fL (80-96); MONOCYTES # (AUTO) 0.6 /CMM (0.1-1.30); MONOCYTES % (AUTO) 6.8 % (2.0-12.0); NEUTROPHILS # (AUTO) 7.5 /CMM (1.8-8.9); NEUTROPHILS % (AUTO) 80.4 % (43.0-81.0); PLATELET COUNT (AUTO) 270 /CMM (150-450); WHITE BLOOD COUNT (AUTO) 9.4 K/uL (4.3-11.0)
[2019-09-28 07:23] LABS: CALCIUM, SERUM 7.9 mg/dL (8.5-10.1); CREATININE 0.9 mg/dL (0.6-1.3); MAGNESIUM 1.9 mg/dL (1.8-2.4); PHOSPHORUS 2.6 mg/dL (2.5-4.9); POTASSIUM 2.9 mmol/L (3.5-5.1)
[2019-09-28] MEDS: PANTOPRAZOLE 40 MG TABLET.DR PO SCH (07:30)
--- NOTE | 2019-09-28 07:30 | NUR ---
Tele/RN Opening note Received patient in bed, non verbal, able to responds physical stimuli. Pt does no appears pain or any discomfort, skin is warm to touch, kept clean/dry, intact IV site. Respiratory even and unlabored with oxygen at 2LPM, O2sat 99%. Keep lower position of the bed with locked wheel and elevated HOB. Call light within reach. Will continue to monitor.
[2019-09-28 08:00] VITALS: BP 97/66
[2019-09-28] MEDS: POTASSIUM CL. PREMIX PERIPHER. 50 ML IV SCH ×2 (08:42→09:36)
[2019-09-28] MEDS: MEGESTROL ACETATE SUSP 400 MG/10 ML UDC PO SCH ×2 (08:42→17:00)
[2019-09-28] MEDS: MAG HYDROX/AL HYDROX/SIMETH 30 ML UDC PO SCH ×2 (08:42→17:00)
[2019-09-28] MEDS: ASCORBIC ACID 500 MG TABLET PO SCH (08:43)
[2019-09-28] MEDS: MULTIVIT W/MINERALS 1 TAB TABLET PO SCH (08:43)
[2019-09-28] MEDS: ZINC SULFATE 220 MG CAPSULE PO SCH (08:43)
[2019-09-28] MEDS: POTASSIUM CHLORIDE 20 MEQ TAB.PRT.SR PO SCH ×3 (11:00→13:00)
[2019-09-28 16:00] VITALS: BP 102/69
--- NOTE | 2019-09-28 18:30 | NUR ---
Tele/RN Closing note Patient sleeping in bed comfortably, dose no appears pain or any discomfort. Skin is warm ot touch, kept clean/dry, intact IV site. Patient failed swallow evaluation x 3, but family member did not want to tube feeding. Continue to IV fluid, no s/s of over fluid observed. Respiratory even and unlabored, keep lower portion if the bed with locked wheel. Call light within reach, will endorse night manager.
--- NOTE | 2019-09-28 19:44 | NUR ---
ASSISTANT DEPARTMENT MANAGER PATIENT IN BED RESPONDS TO VERBAL STIMULI NON VERBAL, ON CARDIAC MONITORING SR 70'S HR. STABLE AND NOT IN DISTRESS. SAFETY MEASURES IN PLACE. WILL CONTINUE TO MONITOR
[2019-09-28 20:00] VITALS: BP 104/67
[2019-09-28 20:26] VITALS: BP 104/67
[2019-09-28] MEDS: clonazePAM 1 MG TABLET PO SCH (22:00)
[2019-09-29] VITALS: BP 107/74
[2019-09-29 00:09] VITALS: BP 107/74
[2019-09-29] MEDS: PIPERACILLIN /TAZOBACTAM 3.375 G in IV D5W 50 ML IV SCH ×3 (00:47→12:59)
--- NOTE | 2019-09-29 03:48 | NUR ---
SERVER SECURITY ADMINISTRATOR PAGED HOSPITALIST SPOKE TO YOSI REGARDING PT'S DAUGHTER REFUSAL OF NGT PLACEMENT FAUILED SWALLOW SOPHIE ASKED HER IF SHE COULD ORDER IV FLUIDS FOR PATIENT. PER YOSI SHE WILL PLACE ORDER
[2019-09-29 04:00] VITALS: BP_SYST 103; BP_SYST 107; BP_SYST 111; BP_DIAS 53; BP_DIAS 66; BP_DIAS 74
[2019-09-29] MEDS ORDERED: IV D5/ 0.9% NACL 1,000 ML IV PRN (04:00)
--- NOTE | 2019-09-29 06:16 | NUR ---
FOOD SERVICE ASSISTANT NO SIGNIFICANT CHANGES, MONITORED ACCORDINGLY, ALL NEEDS ATTENDED AND ANTICIPATED, KEPT CLEAN DRY AND COMFORTABLE. AM CARE RENDERED, REPOSITION EVERY 2 HOURS. OFFLOAD HEELS AND ELBOWS AT ALL TIMES. SAFETY MEASURES AT ALL TIMES. WILL ENDORSE NEXT SHIFT POC. ON CARDIAC MONITORING SR 68'S HR IN TELE MONITOR.
[2019-09-29] MEDS: PANTOPRAZOLE 40 MG TABLET.DR PO SCH (07:30)
[2019-09-29 07:53] LABS: BASOPHILS % (AUTO) 0.5 % (0.0-2.0); EOSINOPHILS % (AUTO) 2.9 % (0.0-6.0); HEMATOCRIT 36 % (39-51); HEMOGLOBIN 11.9 g/dL (13.5-17.5); LYMPHOCYTES # (AUTO) 0.9 /CMM (0.8-4.8); LYMPHOCYTES % (AUTO) 9.4 % (20.0-44.0); MEAN CORPUSCULAR HGB CONC 33 g/dl (31.0-36.0); MEAN CORPUSCULAR VOLUME 93 fL (80-96); MONOCYTES # (AUTO) 0.8 /CMM (0.1-1.30); MONOCYTES % (AUTO) 7.8 % (2.0-12.0); NEUTROPHILS # (AUTO) 8.1 /CMM (1.8-8.9); NEUTROPHILS % (AUTO) 79.4 % (43.0-81.0); PLATELET COUNT (AUTO) 297 /CMM (150-450); RED BLOOD CELL COUNT(AUTO) 3.89 MIL/uL (4.5-6.0); WHITE BLOOD COUNT (AUTO) 10.1 K/uL (4.3-11.0)
[2019-09-29 08:00] VITALS: BP 94/67
--- NOTE | 2019-09-29 08:00 | NUR ---
CARDIO TECH OPENING NOTES Received Patient resting in bed. Obtunded, non-verbal. VS stable with no acute distress. Breathing even and unlabored on 2LPM via NC with no respiratory distress. Denies pain. No signs and symptoms of pain. Telemonitor in place and patent reading SR with HR-67. 20g PIV on left hand clean, intact, patent. 18g PIV on RFA clean, intact, patent and flushing well with D5NS infusing at 50ml/hr. Safety precautions in place. Bed locked and set to lowest position with side rails x 2 up. All needs rendered at this time. Call light within reach. Will continue to monitor.
[2019-09-29 08:09] LABS: CALCIUM, SERUM 8.1 mg/dL (8.5-10.1); CREATININE 0.7 mg/dL (0.6-1.3); MAGNESIUM 1.9 mg/dL (1.8-2.4); PHOSPHORUS 2.7 mg/dL (2.5-4.9); POTASSIUM 3.3 mmol/L (3.5-5.1)
[2019-09-29] MEDS: ZINC SULFATE 220 MG CAPSULE PO SCH (09:00)
[2019-09-29] MEDS: MEGESTROL ACETATE SUSP 400 MG/10 ML UDC PO SCH (09:00)
[2019-09-29] MEDS: ASCORBIC ACID 500 MG TABLET PO SCH (09:00)
[2019-09-29] MEDS: MAG HYDROX/AL HYDROX/SIMETH 30 ML UDC PO SCH (09:00)
[2019-09-29] MEDS: MULTIVIT W/MINERALS 1 TAB TABLET PO SCH (09:00)
[2019-09-29] MEDS: VANCOMYCIN 1 GM in IV D5W 250 ML IV SCH (09:34)
[2019-09-29] MEDS ORDERED: LEVO500T75 PO (09:46)
[2019-09-29] MEDS ORDERED: POTASSIUM CHLORIDE 20 MEQ TAB.PRT.SR PO SCH (11:00)
[2019-09-29 11:32] LABS: LYMPHOCYTES % (MANUAL) 8 % (16-48); NEUTROPHILS % (MANUAL) 77 (42-76); REACTIVE LYMPHOCYTES 10 % (0-0)
[2019-09-29 11:33] LABS: EOSINOPHILS % (MANUAL) 1 % (0-4); MYELOCYTES % 4 % (0-0)
[2019-09-29] MEDS: POTASSIUM CL. PREMIX PERIPHER. 50 ML IV SCH ×5 (11:46→15:30)
[2019-09-29 16:00] VITALS: BP 107/71
--- NOTE | 2019-09-29 16:13 | NUR ---
PHARMACY TECHNICIAN INSTRUCTORMACHINERY DISMANTLER NOTES Patient discharged for [facility] at this time. Patient in stable condition. VS stable with no acute distress. Breathing even and unlabored on 2LPM via NC with no respiratory distress. No signs and symptoms of pain. Skin assessment photos taken and placed in chart. Removed intact PIV. Patient tolerated well. Medication reconciliation and discharge orders reviewed and explained to the Patient. Patient unable to comprehend. All belongings with Patient. Patient will follow up with PCP. Patient picked up by ambulance. Report given to Elizabeth MOSS.
== END 2019-09-29 16:05 | DRG 871 ==
LOC: ER 14:45 → MEDSG1 20:30 → TELE1 20:54 → TELE-TD 21:57 → TELE1 09-26 07:59 → MEDSG1 09-27 06:58 → TELE1 09-27 10:04 → TELE 09-27 15:11
PROVIDERS: ADMIT Internal Medicine; ATTEND Internal Medicine
DX: A41.9 Sepsis, unspecified organism (principal); L89.893 Pressure ulcer of other site, stage 3; L89.323 Pressure ulcer of left buttock, stage 3; G93.41 Metabolic encephalopathy; N17.0 Acute kidney failure with tubular necrosis; J96.91 Respiratory failure, unspecified with hypoxia; J18.9 Pneumonia, unspecified organism; I21.A1 Myocardial infarction type 2; G82.20 Paraplegia, unspecified; N17.9 Acute kidney failure, unspecified; E44.0 Moderate protein-calorie malnutrition; E87.0 Hyperosmolality and hypernatremia; E87.1 Hypo-osmolality and hyponatremia; D68.69 Other thrombophilia; Z68.1 Body mass index [BMI] 19.9 or less, adult; G30.9 Alzheimer's disease, unspecified; F02.80 Dementia in other diseases classified elsewhere, unspecified severity, without behavioral disturbance, psychotic disturbance, mood disturbance, and anxiety; R32 Unspecified urinary incontinence; Z22.322 Carrier or suspected carrier of Methicillin resistant Staphylococcus aureus; E88.09 Other disorders of plasma-protein metabolism, not elsewhere classified; K21.9 Gastro-esophageal reflux disease without esophagitis; N40.0 Benign prostatic hyperplasia without lower urinary tract symptoms; L89.626 Pressure-induced deep tissue damage of left heel; L89.616 Pressure-induced deep tissue damage of right heel; Z66 Do not resuscitate; S81.002A Unspecified open wound, left knee, initial encounter; X58.XXXA Exposure to other specified factors, initial encounter; Y93.9 Activity, unspecified; Y92.129 Unspecified place in nursing home as the place of occurrence of the external cause; M24.571 Contracture, right ankle; M24.572 Contracture, left ankle; R74.0 Nonspecific elevation of levels of transaminase and lactic acid dehydrogenase [LDH]; L89.226 Pressure-induced deep tissue damage of left hip; M24.562 Contracture, left knee; M24.561 Contracture, right knee; M24.552 Contracture, left hip; M24.551 Contracture, right hip; L90.5 Scar conditions and fibrosis of skin; Z87.01 Personal history of pneumonia (recurrent); L89.156 Pressure-induced deep tissue damage of sacral region; L89.106 Pressure-induced deep tissue damage of unspecified part of back; E86.1 Hypovolemia; E87.6 Hypokalemia; F32.9 Major depressive disorder, single episode, unspecified; F41.9 Anxiety disorder, unspecified; R13.10 Dysphagia, unspecified
CPT/HCPCS: 36415; 36600; 71045-TC; 80048-TC; 80053-TC; 80076-TC; 80202-TC; 82550-TC; 82728-TC; 82962-TC; 83605-TC; 83615-TC; 83735-TC; 83880; 84100-TC; 84484-TC; 85025-TC; 85378-TC; 85730-TC; 86140-TC; 87040-TC; 87081-TC; 92526; 92611-TC; 97530-TC; A4349; G0378; J0456; J0692; J2543; J3370; J3480; J3490; J7030; J7042; J7050; J7060